=== PATIENT | female | born 1980 | race Caucasian/White ===

== ENCOUNTER 2016-12-10 16:49 | Emergency (ER) | payer OTHER ==
[~2016-12-10] VITALS: Ht 160 cm; Wt 87.8 kg
[~2016-12-10 16:49] MED LIST: CIPR500T4 PO; NAPR220T95 PO; RANI150 PO
[2016-12-10 16:52] VITALS: BP 130/87; PULSE 85; RESP 16; TEMP 98.4; O2SAT 97
[2016-12-10] MEDS ORDERED: MIGRAINE PILL (17:10)
[2016-12-10] MEDS ORDERED: SLEEPING PILL (17:10)
[2016-12-10] MEDS ORDERED: [UNRECOGNIZED DRUG - REMARK] (17:10)
--- NOTE | 2016-12-10 18:28 | RADHPO ---
EXAM DATE/TIME: 12/10/2016 17:48 [place] COMPARISON: No previous studies available for comparison. INDICATIONS : Left hand third digit pain. Patient states she jammed her finger. MEDICAL HISTORY : None. SURGICAL HISTORY : None. ENCOUNTER: Initial ACUITY: 1 day PAIN SCORE: 6/10 LOCATION: Left hand, third digit. FINDINGS: 3 views of the third finger reveal a tiny avulsion fracture involving the base of the palmar surface of the middle phalanx. The remaining bony structures are unremarkable. Soft tissue swelling is noted. CONCLUSION: Tiny avulsion fracture involving the middle phalanx. Agustin Manley Jr., MD on December 10, 2016 at 18:25 Board Certified Radiologist. This report was verified electronically.
[2016-12-10] MEDS ORDERED: IBUP800T23 PO (18:37)
--- NOTE | 2016-12-10 18:38 | PD ---
HPI Chief Complaint: Injury Time Seen by Provider: 18:15 Travel History International Travel<30 days: No Contact w/Intl Traveler<30days: No Traveled to known affect area: No History of Present Illness HPI 36-year-old female with no significant past medical history presents emergency department for left third digit pain. She reports that yesterday her and her were wrestling and the finger was injured by twisting. The digit is swollen and painful but she has full range of motion normal sensation. She reports the pain is aching, constant, nonradiating, severity 6 out of 10. PFSH Past Medical History Medical History: Denies Significant Hx Hx Anticoagulant Therapy: No Heart Rhythm Problems: Yes (RBBB) Cardiovascular Problems: Yes (RBBB) Chemotherapy: No Cerebrovascular Accident: No Diabetes: No Respiratory: No ?: Not LMP: IUD IN PLACE-DOES NOT GET Menopausal: No Past Surgical History Cholecystectomy: Yes Hysterectomy: No Social History Alcohol Use: Yes (OCC) Tobacco Use: No Substance Use: No Allergies-Medications (Allergen,Severity, Reaction): Coded Allergies: Penicillin (Verified Allergy, Severe, Anaphylaxis, 12/10/16) Percocet (Verified Adverse Reaction, Intermediate, NAUSEA, DIZZINESS, 12/10) Reported Meds & Prescriptions Reported Meds & Active Scripts Active Ibuprofen 800 Mg Tab 800 Mg PO Q8H PRN Reported [Migraine Pill] [Gerd Pill] [Sleeping Pill] Review of Systems Except as stated in HPI: all other systems reviewed are Neg Physical Exam Narrative GENERAL: Well-nourished, well-developed patient. SKIN: Focused skin assessment warm/dry. Ecchymosis and swelling to the left third digit. HEAD: Normocephalic. EYES: No scleral icterus. No injection or drainage. NECK: Supple, trachea midline. No JVD or lymphadenopathy. CARDIOVASCULAR: Regular rate and rhythm without murmurs, gallops, or rubs. RESPIRATORY: Breath sounds equal bilaterally. No accessory muscle use. GASTROINTESTINAL: Abdomen soft, non-tender, nondistended. MUSCULOSKELETAL: No cyanosis. Left third phalanx moderate swelling. Tender to the PIP joint. Patient has limited range of motion due to pain. Trigger is neurovascularly intact. BACK: Nontender without obvious deformity. No CVA tenderness. Data Data Last Documented VS Vital Signs Date Time Temp Pulse Resp B/P Pulse Ox O2 Delivery O2 Flow Rate FiO2 12/10/16 16:52 98.4 85 16 130/87 97 Orders Finger ([id number]) (12/10/16 ) Splint Or Brace Apply/Monitor (12/10/16 18:38) Finger Splint (12/10/16 ) MDM Medical Decision Making Medical Screen Exam Complete: Yes Emergency Medical Condition: Yes Differential Diagnosis Finger fracture, finger sprain, contusion Narrative Course 36-year-old female with no significant past medical history presents emergency department for left third digit pain. She reports that yesterday her and her were wrestling and the finger was injured by twisting. The digit is swollen and painful but she has full range of motion normal sensation. X-ray reveal a small avulsion fracture of mid phalanx. Finger will be splinted patient instructed to a follow-up with orthopedics. Diagnosis Primary Impression: Finger fracture, left Qualified Code: S62.653A - Closed nondisplaced fracture of middle phalanx of left middle finger, initial encounter Referrals: Artis Warren MD Primary Care Physician Patient Instructions: Finger Fracture (ED), General Instructions Additional Instructions: With a splint as discussed. Follow up with her primary care doctor. He was given the name and number to hand surgeon should she develop complications with a fracture such as decreased range of motion. Scripts Ibuprofen 800 Mg Uor184 Mg PO Q8H PRN (Pain/Inflammation) #30 TAB Prov:Chelle Watters 12/10/16 Disposition: 01 DISCHARGE HOME Condition: Stable Chelle Watters December 10, 2016 18:38
== END 2016-12-10 18:53 | disposition home or self-care (01) ==
LOC: PHEFT 16:49
DX: S62.603A Fracture of unspecified phalanx of left middle finger, initial encounter for closed fracture (principal); I45.10 Unspecified right bundle-branch block; Z88.0 Allergy status to penicillin; X50.1XXA Overexertion from prolonged static or awkward postures, initial encounter; Y93.72 Activity, wrestling; Z88.5 Allergy status to narcotic agent
CPT/HCPCS: 29130; 73140